=== PATIENT | female | born 1975 | race Caucasian/White ===

== ENCOUNTER 2018-06-16 11:21 | Inpatient (IN) | payer OTHER ==
[2018-06-16 13:31] VITALS: BMI 21.5
--- NOTE | 2018-06-16 13:49 | HP ---
CIWA Score - CIWA Score Nausea/Vomitin Muscle Tremors: 2 Anxiety: 2 Agitation: 2 Paroxysmal Sweats: 1-Minimal Palms Moist Orientation: 0-Oriented Tacttile Disturbances: 1-Very Mild Itch/Numbness Auditory Disturbances: 1-Very Mild Visual Disturbances: 1-Very Mild Sensitivity Headache: 2-Mild CIWA-Ar Total Score: 14 Admission ROS BHS - HPI Chief Complaint: i need help to stop drinking alcohol,cocaine,klonopin,heroin abused,mmtp 60 mgs/ day syncope nicotine dependence Allergies/Adverse Reactions: Allergies Allergy/AdvReac Type Severity Reaction Status Date / Time NSAIDS (Non-Steroidal Allergy Intermediate Hives Verified 06/16/18 13:39 Anti-Inflamma History of Present Illness: this 43 years old female with alcohol,cocaine,klonopin heroin abused,mmtp 60 mgs /day,last medicated today syncope history of hepatitis c treated,asthma,weight loss,anxiety,depression,ptsd perforated duodenal ulcer in 07/03 treated at [facility] fx of right wrist at age of 6 years abrasion of right middle fingerlast detox 2017 [facility] Exam Limitations: No Limitations - Ebola screening Have you traveled outside of the country in the last 21 days: No Have you had contact with anyone from an Ebola affected area: No Have you been sick,other than usual withdrawal symptoms: No - Review of Systems Constitutional: Loss of Appetite, Malaise, Night Sweats, Changes in sleep, Weakness, Unintentional Wgt. Loss EENT: reports: Nose Congestion Respiratory: reports: No Symptoms reported, Other (asthma) Cardiac: reports: No Symptoms Reported GI: reports: Nausea, Poor Appetite, Abdominal cramping, Other (s/p surgery for perforated duodenal ulcer) : reports: No Symptoms Reported Musculoskeletal: reports: Back Pain, Muscle Pain Integumentary: reports: Dryness Neuro: reports: Tremors Endocrine: reports: No Symptoms Reported Hematology: reports: No Symptoms Reported Psychiatric: reports: No Sypmtoms Reported, Judgement Intact, Mood/Affect Appropiate, Orientated x3 (ptsd), Agitated, Depressed Patient History - Patient Medical History Hx Anemia: No Hx Asthma: Yes (on albuterol inhaler) Hx Chronic Obstructive Pulmonary Disease (COPD): No Hx Cancer: No Hx Cardiac Disorders: No Hx Congestive Heart Failure: No Hx Hypertension: No Hx Hypercholesterolemia: No Hx Pacemaker: No HX Cerebrovascular Accident: No Hx Seizures: No Hx Dementia: No Hx Diabetes: No Hx Gastrointestinal Disorders: No Hx Liver Disease: Yes (hepatitis c treated) Hx Genitourinary Disorders: No Hx Sexually Transmitted Disorders: No Hx Renal Disease (ESRD): No Hx Thyroid Disease: No Hx Human Immunodeficiency Virus (HIV): No (last 12/08 negative) Hx Hepatitis C: Yes (treated) Hx Depression: Yes Hx Suicide Attempt: No Hx Bipolar Disorder: No Hx Schizophrenia: No Other Medical History: no suicidal,no homicidal, - Patient Surgical History Past Surgical History: Yes Hx Abdominal Surgery: Yes (perforated duodenal ulcer) - PPD History Previous Implant?: Yes Documented Results: Negative w/o proof Implanted On Prior [facility] Admission?: No PPD to be Administered?: Yes - Reproductive History Patient is a Female of Child Bearing Age (11 -55 yrs old): Yes Last Menstrual Period: 05/24/18 Patient : No - Smoking Cessation Smoking history: Current every day smoker Have you smoked in the past 12 months: Yes Aproximately how many cigarettes per day: 10 Cigars Per Day: 0 Hx Chewing Tobacco Use: No Initiated information on smoking cessation: Yes 'Breaking Loose' booklet given: 06/16/18 - Substance & Tx. History Hx Alcohol Use: Yes Hx Substance Use: Yes Substance Use Type: Alcohol, Cocaine, Opiates, Tranquilizers Hx Substance Use Treatment: Yes ([facility] 2016) - Substances Abused Alcohol Route: Oral Frequency: Daily Amount used: vodka-6pts Age of first use: 13 Date of Last Use: 06/16/18 Heroin Route: Oral Frequency: Daily Amount used: 4bags Age of first use: 15 Date of Last Use: 06/16/18 Benzodiazepine (Klonopin) Route: Oral Frequency: Daily Amount used: 6mg Age of first use: 12 Date of Last Use: 06/15/18 Cocaine Route: Injection Frequency: Daily Amount used: $40- 4bags Age of first use: 14 Date of Last Use: 06/15/18 Family Disease History - Family Disease History Family Disease History: Other: Father (), Mother (alcohol,dsa,sober) Admission Physical Exam BHS - Vital Signs Vital Signs: Vital Signs - 24 hr 06/16/18 13:26 Temperature 96 F L Pulse Rate 47 L Respiratory 17 Rate Blood Pressure 92/59 L - Physical General Appearance: Yes: Moderate Distress, Cachetic, Tremorous, Irritable, Sweating, Anxious HEENTM: Yes: Normal ENT Inspection, EVE, Pharynx Normal Respiratory: Yes: Lungs Clear, Normal Breath Sounds, No Respiratory Distress Neck: Yes: Within Normal Limits, Supple, Trachea in good position Breast: Yes: Breast Exam Deferred Cardiology: Yes: Regular Rhythm, Regular Rate, S1, S2, Bradycardia Abdominal: Yes: Within Normal Limits, Normal Bowel Sounds, Non Tender, Flat, Soft, Surgical Scar Genitourinary: Yes: Within Normal Limits Back: Yes: Muscle Spasm Musculoskeletal: Yes: Back pain, Joint Stiffness, Muscle Pain Extremities: Yes: Normal Range of Motion, Tremors Neurological: Yes: Within Normal Limits, jigger operator II-XII NML intact, Alert, Motor Strength 5/5 Integumentary: Yes: Dry Lymphatic: Yes: Within Normal Limits - Diagnostic (1) Alcohol dependence with uncomplicated withdrawal Current Visit: Yes Status: Acute (2) Uncomplicated sedative, hypnotic or anxiolytic withdrawal Current Visit: Yes Status: Acute (3) Hepatitis C Current Visit: Yes Status: Acute (4) Weight loss Current Visit: Yes Status: Acute (5) Anxiety and depression Current Visit: Yes Status: Acute (6) Methadone maintenance therapy patient Current Visit: Yes Status: Acute (7) History of peptic ulcer Current Visit: Yes Status: Acute (8) PTSD (post-traumatic stress disorder) Current Visit: Yes Status: Acute (9) Abrasion Current Visit: Yes Status: Acute Cleared for Admission [facility] - Detox or Rehab [facility] Level of Care: Medically Managed Detox Regimen/Protocol: Valium [facility] Breath Alcohol Content Breath Alcohol Content: 0 Urine Pregancy Test - Result Urine Test Results: Negative- NO Line Present Urine Drug Screen - Results Drug Screen Negative: No Urine Drug Screen Results: LENORA-Cocaine, OPI-Opiates, BZO-Benzodiazepines, MTD- Methadone, FEN-Fentanyl
[2018-06-16] MEDS ORDERED: LOPERAMIDE HCL 2 MG CAPSULE PO PRN (15:15)
[2018-06-16] MEDS ORDERED: diazePAM 5 MG TABLET PO PRN (15:15)
[2018-06-16] MEDS ORDERED: ACETAMINOPHEN 325 MG TABLET (FP) PO PRN (15:15)
[2018-06-16] MEDS ORDERED: MAG HYDROX/AL HYDROX/SIMETH 30 ML UNIT-DOSE CUP PO PRN (15:15)
[2018-06-16] MEDS ORDERED: MAGNESIUM HYDROX 2400MG/30ML ORAL SUSPENSION 30 ML CUP PO PRN (15:15)
[2018-06-16] MEDS ORDERED: guaiFENesin/D-METHORPHAN HB 10 ML UNIT-DOSE CUPS PO PRN (15:15)
[2018-06-16] MEDS ORDERED: MENTHOL/PHENOL 1 EACH UD MM PRN (15:15)
[2018-06-16] MEDS ORDERED: P-EPHED 60MG/TRIPROLIDI 2.5MG TABLET PO PRN (15:15)
[2018-06-16] MEDS ORDERED: IBUPROFEN 400 MG TABLET (FP) PO PRN (15:15)
[2018-06-16] MEDS ORDERED: MAGNESIUM CITRATE 300 ML BOTTLE PO PRN (15:15)
--- NOTE | 2018-06-16 15:44 | CONSULT ---
[facility] Psychiatric Consult - Data Date of interview: 06/16/18 Admission source: [facility] Identifying data: This is a 43 years old female, ,unemployed, homeless, onPA support, with psychiatric hospitalization history with alcohol,cocaine, klonopin heroin dependence, reporting withdrawal symptoms and seeking detox. Currently on MMTP 60 mgs/day,last medicated today. Substance Abuse History: - Smoking Cessation. Smoking history: Current every day smoker. Have you smoked in the past 12 months: Yes. Aproximately how many cigarettes per day: 10. Cigars Per Day: 0. Hx Chewing Tobacco Use: No. Initiated information on smoking cessation: Yes. 'Breaking Loose' booklet given : 06/16/18. - Substance & Tx. History. Hx Alcohol Use: Yes. Hx Substance Use : Yes. Substance Use Type: Alcohol, Cocaine, Opiates, Tranquilizers. Hx Substance Use Treatment: Yes ([facility] 2016). - Substances Abused. Alcohol. Route: Oral. Frequency: Daily. Amount used: vodka-6pts. Age of first use: 13. Date of Last Use: 06/16/18. Heroin. Route: Oral. Frequency: Daily. Amount used: 4bags. Age of first use: 15. Date of Last Use: 06/16/18. Benzodiazepine (Klonopin). Route: Oral. Frequency: Daily. Amount used: 6mg. Age of first use: 12. Date of Last Use: 06/15/18. Cocaine. Route: Injection. Frequency: Daily. Amount used: $40- 4bags. Age of first use: 14. Date of Last Use: 06/15/18 Medical History: hEPc+, Peptic Ulcer, Weigth loss history, Symcope history, Seizure history Psychiatric History: Patient reports history of depression and anxiety, reports taking prior to admission: Seroquel 50mg po qhs. As per computer suffers PTSD, . Denies suicidal, homicidal history. Reports unclear psychiatric admission on 2017 at [facility]. Physical/Sexual Abuse/Trauma History: Denies Additional Comment: Seroquel 50mg po qhs Mental Status Exam - Mental Status Exam Alert and Oriented to: Person Cognitive Function: Fair Patient Appearance: Well Groomed Mood: Anxious, Irritable Affect: Mood Congruent Patient Behavior: Cooperative Speech Pattern: Appropriate Voice Loudness: Normal Thought Process: Goal Oriented Thought Disorder: Being Controlled Hallucinations: Denies Suicidal Ideation: Denies Homicidal Ideation: Denies Insight/Judgement: Fair Sleep: Difficulty falling asleep Appetite: Weight loss Muscle strength/Tone: Normal Gait/Station: Normal Additional Comments: Seroquel 50mg po qhs Psychiatric Findings - Problem List ([place] 1, 2,3) (1) Alcohol dependence with uncomplicated withdrawal Current Visit: Yes Status: Acute (2) Anxiety and depression Current Visit: Yes Status: Acute (3) Methadone maintenance therapy patient Current Visit: Yes Status: Acute (4) PTSD (post-traumatic stress disorder) Current Visit: Yes Status: Acute (5) Uncomplicated sedative, hypnotic or anxiolytic withdrawal Current Visit: Yes Status: Acute (6) Weight loss Current Visit: Yes Status: Acute - Initial Treatment Plan Initial Treatment Plan: SEROQUEL 50MG PO QHS
[2018-06-16] MEDS ORDERED: diazePAM 5 MG TABLET PO ONE (15:45)
[2018-06-16] MEDS ORDERED: MELATONIN 5 MG TABLETS PO PRN (22:00)
[2018-06-16] MEDS: diazePAM 5 MG TABLET PO SCH (22:50)
[2018-06-16] MEDS: THIAMINE HCL 100 MG TABLET (FP) PO SCH (22:50)
[2018-06-16 23:16] LABS: URINE APPEARANCE CLEAR; URINE BILIRUBIN NEGATIVE (<2.0 mg/dL); URINE COLOR YELLOW; URINE GLUCOSE (UA) NEGATIVE (NEGATIVE); URINE KETONE NEGATIVE (NEGATIVE); URINE LEUK ESTERASE TRACE (NEGATIVE); URINE NITRITE NEGATIVE (NEGATIVE); URINE PROTEIN NEGATIVE (NEGATIVE); URINE UROBILINOGEN 4.0 E.U/dl mg/dL (0.2-1.0)
[2018-06-16 23:28] LABS: EPI CELLS MODERATE /HPF (FEW); URINE BACTERIA RARE /hpf (NONE SEEN); URINE MUCUS RARE
[2018-06-17] MEDS: diazePAM 5 MG TABLET PO SCH ×3 (05:24→22:22)
[2018-06-17] MEDS ORDERED: METHADONE HCL 10 MG TABLET PO ONE (08:52)
[2018-06-17] MEDS ORDERED: METHADONE 40 MG, METHADONE 20 MG PO ONE (09:15)
--- NOTE | 2018-06-17 09:45 | EKG ---
Test Reason : Blood Pressure : / mmHG Vent. Rate : 053 BPM Atrial Rate : 053 BPM P-R Int : 114 ms QRS Dur : 090 ms QT Int : 472 ms P-R-T Axes : 010 056 041 degrees QTc Int : 442 ms SINUS BRADYCARDIA NONSPECIFIC T WAVE ABNORMALITY NO PREVIOUS ECGS AVAILABLE Confirmed by SHERIDAN MARTINO MD ([id number]) on 06/17/2018 9:45:00 AM Referred By: Confirmed By:SHERIDAN MARTINO MD
[2018-06-17] MEDS ORDERED: METHADONE HCL 40 MG DISPERSABLE TABLET ONE (09:55)
[2018-06-17] MEDS ORDERED: METHADONE HCL 10 MG TABLET ONE (09:55)
[2018-06-17 10:40] LABS: HEMATOCRIT 35.2 % (32.4-45.2); HEMOGLOBIN 11.6 GM/dL (10.7-15.3); MCH 28.2 pg (25.7-33.7); MCHC 32.9 g/dl (32.0-36.0); MEAN CELL VOLUME 85.6 fl (80-96); PLATELET COUNT 277 K/MM3 (134-434); RBC 4.11 M/mm3 (3.60-5.2); RDW 14.4 % (11.6-15.6); WHITE BLOOD COUNT 5.4 K/mm3 (4.0-10.0)
[2018-06-17] MEDS: PRENATAL VITAMINS W/ FOLIC ACID TABLET (FP) PO SCH (10:43)
[2018-06-17 10:52] LABS: ALBUMIN 2.9 g/dl (3.4-5.0); ALK PHOS 61 U/L (45-117); ANION GAP 5 MMOL/L (8-16); BILIRUBIN,TOTAL 0.2 mg/dL (0.2-1); BLOOD UREA NITROGEN 11 mg/dL (7-18); CALCIUM 8.8 mg/dL (8.5-10.1); CHLORIDE 107 mmol/L (98-107); CO2 30 mmol/L (21-32); CREATININE 0.8 mg/dL (0.55-1.3); GLUCOSE,RANDOM 88 mg/dL (74-106); POTASSIUM 4.7 mmol/L (3.5-5.1); SGOT/AST 15 U/L (15-37); SGPT/ALT 12 U/L (13-61); SODIUM 142 mmol/L (136-145); TOT PROT 6.4 g/dl (6.4-8.2)
--- NOTE | 2018-06-17 11:04 | PN ---
S CIWA - CIWA Score Nausea/Vomitin-No Nausea/No Vomiting Muscle Tremors: 4-Moderate,w/Arms Extend Anxiety: 3 Agitation: 4-Moderately Restless Paroxysmal Sweats: 3 Orientation: 0-Oriented Tacttile Disturbances: 0-None Auditory Disturbances: 0-None Visual Disturbances: 0-None Headache: 0-None Present CIWA-Ar Total Score: 14 BHS Progress Note (SOAP) Subjective: sleepy tired sweats body aches irritable agitation shakes Objective: 06/17/18 11:03 Vital Signs Temperature 98.1 F 06/17/18 09:39 Pulse Rate 67 06/17/18 09:39 Respiratory Rate 18 06/17/18 09:39 Blood Pressure 105/74 06/17/18 09:39 O2 Sat by Pulse Oximetry (%) Laboratory Tests 06/16/18 06/17/18 06/17/18 16:11 07:00 07:00 WBC 5.4 RBC 4.11 Hgb 11.6 Hct 35.2 MCV 85.6 MCH 28.2 MCHC 32.9 RDW 14.4 Plt Count 277 MPV 9.0 Sodium 142 Potassium 4.7 Chloride 107 Carbon Dioxide 30 Anion Gap 5 L BUN 11 Creatinine 0.8 Creat Clearance w eGFR > 60 Random Glucose 88 Calcium 8.8 Total Bilirubin 0.2 AST 15 ALT 12 L Alkaline Phosphatase 61 Total Protein 6.4 Albumin 2.9 L Urine Color Yellow Urine Appearance Clear Urine pH 6.0 Ur Specific [place] 1.015 Urine Protein Negative Urine Glucose (UA) Negative Urine Ketones Negative Urine Blood Negative Urine Nitrite Negative Urine Bilirubin Negative Urine Urobilinogen 4.0 e.u/dl H Ur Leukocyte Esterase Trace Urine WBC (Auto) None Urine RBC (Auto) None Ur Epithelial Cells Moderate Urine Bacteria Rare Urine Mucus Rare aaox3 ambulating no acute distress Assessment: 06/17/18 11:03 withdrawal sx Plan: continue detox increase fluids
[2018-06-17] MEDS ORDERED: FLU VACCINE QUAD 60 MCG/0.5 ML (MDV 18-19) IM ONE (12:00)
--- NOTE | 2018-06-17 20:19 | PN ---
S Progress Note Note: Call to assess patient for lice. Hair is short. Patient denies itching. Hair w/o nits (eggs) or insects on shafts. No insects in hair or on scalp. No erythema spots on scalp. Assessment: No Pediculus Capitis present.
[2018-06-17] MEDS: THIAMINE HCL 100 MG TABLET (FP) PO SCH (22:22)
[2018-06-18] MEDS ORDERED: METHADONE HCL 40 MG DISPERSABLE TABLET ONE (05:31)
[2018-06-18] MEDS ORDERED: METHADONE HCL 10 MG TABLET ONE (05:32)
[2018-06-18] MEDS ORDERED: METHADONE HCL 40 MG DISPERSABLE TABLET PO SCH (06:00)
[2018-06-18] MEDS: METHADONE 40 MG, METHADONE 20 MG PO SCH (06:02)
[2018-06-18] MEDS: diazePAM 5 MG TABLET PO SCH ×2 (10:03→22:24)
[2018-06-18] MEDS: PRENATAL VITAMINS W/ FOLIC ACID TABLET (FP) PO SCH (10:03)
--- NOTE | 2018-06-18 14:56 | PN ---
S CIWA - CIWA Score Nausea/Vomitin-No Nausea/No Vomiting Muscle Tremors: 3 Anxiety: 1-Mildly Anxious Agitation: 0-Normal Activity Paroxysmal Sweats: No Perspiration Orientation: 0-Oriented Tacttile Disturbances: 0-None Auditory Disturbances: 0-None Visual Disturbances: 0-None Headache: 0-None Present CIWA-Ar Total Score: 4 BHS Progress Note (SOAP) Subjective: States feeling much better today. Has some slight tremors of hands and mild anxiety but otherwise ok. Objective: A&O x3. Mild tremors of hands w/ arms extended. No evidence of lice. Vital Signs 06/18/18 06/18/18 09:21 13:47 Temperature 96.9 F L 98.2 F Pulse Rate 51 L 56 L Respiratory 16 18 Rate Blood Pressure 117/70 96/70 Laboratory Tests 06/16/18 06/16/18 06/17/18 07:00 16:11 07:00 WBC 5.4 RBC 4.11 Hgb 11.6 Hct 35.2 MCV 85.6 MCH 28.2 MCHC 32.9 RDW 14.4 Plt Count 277 MPV 9.0 Sodium Potassium Chloride Carbon Dioxide Anion Gap BUN Creatinine Creat Clearance w eGFR Random Glucose Calcium Total Bilirubin AST ALT Alkaline Phosphatase Total Protein Albumin Urine Color Yellow Urine Appearance Clear Urine pH 6.0 Ur Specific [place] 1.015 Urine Protein Negative Urine Glucose (UA) Negative Urine Ketones Negative Urine Blood Negative Urine Nitrite Negative Urine Bilirubin Negative Urine Urobilinogen 4.0 e.u/dl H Ur Leukocyte Esterase Trace Urine WBC (Auto) None Urine RBC (Auto) None Ur Epithelial Cells Moderate Urine Bacteria Rare Urine Mucus Rare RPR Titer HIV 1&2 Antibody Screen Negative HIV P24 Antigen Negative 06/17/18 06/17/18 07:00 07:00 WBC RBC Hgb Hct MCV MCH MCHC RDW Plt Count MPV Sodium 142 Potassium 4.7 Chloride 107 Carbon Dioxide 30 Anion Gap 5 L BUN 11 Creatinine 0.8 Creat Clearance w eGFR > 60 Random Glucose 88 Calcium 8.8 Total Bilirubin 0.2 AST 15 ALT 12 L Alkaline Phosphatase 61 Total Protein 6.4 Albumin 2.9 L Urine Color Urine Appearance Urine pH Ur Specific [place] Urine Protein Urine Glucose (UA) Urine Ketones Urine Blood Urine Nitrite Urine Bilirubin Urine Urobilinogen Ur Leukocyte Esterase Urine WBC (Auto) Urine RBC (Auto) Ur Epithelial Cells Urine Bacteria Urine Mucus RPR Titer Nonreactive HIV 1&2 Antibody Screen HIV P24 Antigen Labs reviewed. Assessment: Withdrawal symptoms Plan: Continue detox.
[2018-06-18] MEDS: THIAMINE HCL 100 MG TABLET (FP) PO SCH (22:24)
[2018-06-19] MEDS ORDERED: METHADONE HCL 40 MG DISPERSABLE TABLET ONE (04:31)
[2018-06-19] MEDS ORDERED: METHADONE HCL 10 MG TABLET ONE (04:32)
[2018-06-19] MEDS: METHADONE 40 MG, METHADONE 20 MG PO SCH (05:24)
[2018-06-19] MEDS: diazePAM 5 MG TABLET PO SCH ×2 (10:03→22:07)
[2018-06-19] MEDS: PRENATAL VITAMINS W/ FOLIC ACID TABLET (FP) PO SCH (10:03)
--- NOTE | 2018-06-19 10:50 | PN ---
BHS Progress Note (SOAP) Subjective: feeling better no tremor less sweat no trouble sleep at night Objective: 06/19/18 10:49 Vital Signs Temperature 98.1 F 06/19/18 09:41 Pulse Rate 60 06/19/18 09:41 Respiratory Rate 16 06/19/18 09:41 Blood Pressure 109/71 06/19/18 09:41 O2 Sat by Pulse Oximetry (%) Laboratory Last Values WBC 5.4 K/mm3 (4.0-10.0) 06/17/18 07:00 RBC 4.11 M/mm3 (3.60-5.2) 06/17/18 07:00 Hgb 11.6 GM/dL (10.7-15.3) 06/17/18 07:00 Hct 35.2 % (32.4-45.2) 06/17/18 07:00 MCV 85.6 fl (80-96) 06/17/18 07:00 MCH 28.2 pg (25.7-33.7) 06/17/18 07:00 MCHC 32.9 g/dl (32.0-36.0) 06/17/18 07:00 RDW 14.4 % (11.6-15.6) 06/17/18 07:00 Plt Count 277 K/MM3 (134-434) 06/17/18 07:00 MPV 9.0 fl (7.5-11.1) 06/17/18 07:00 Sodium 142 mmol/L (136-145) 06/17/18 07:00 Potassium 4.7 mmol/L (3.5-5.1) 06/17/18 07:00 Chloride 107 mmol/L (98-107) 06/17/18 07:00 Carbon Dioxide 30 mmol/L (21-32) 06/17/18 07:00 Anion Gap 5 MMOL/L (8-16) L 06/17/18 07:00 BUN 11 mg/dL (7-18) 06/17/18 07:00 Creatinine 0.8 mg/dL (0.55-1.3) 06/17/18 07:00 Creat Clearance w eGFR > 60 (>60) 06/17/18 07:00 Random Glucose 88 mg/dL (74-106) 06/17/18 07:00 Calcium 8.8 mg/dL (8.5-10.1) 06/17/18 07:00 Total Bilirubin 0.2 mg/dL (0.2-1) 06/17/18 07:00 AST 15 U/L (15-37) 06/17/18 07:00 ALT 12 U/L (13-61) L 06/17/18 07:00 Alkaline Phosphatase 61 U/L (45-117) 06/17/18 07:00 Total Protein 6.4 g/dl (6.4-8.2) 06/17/18 07:00 Albumin 2.9 g/dl (3.4-5.0) L 06/17/18 07:00 Urine Color Yellow 06/16/18 16:11 Urine Appearance Clear 06/16/18 16:11 Urine pH 6.0 (5.0-8.0) 06/16/18 16:11 Ur Specific [place] 1.015 (1.010-1.035) 06/16/18 16:11 Urine Protein Negative (NEGATIVE) 06/16/18 16:11 Urine Glucose (UA) Negative (NEGATIVE) 06/16/18 16:11 Urine Ketones Negative (NEGATIVE) 06/16/18 16:11 Urine Blood Negative (NEGATIVE) 06/16/18 16:11 Urine Nitrite Negative (NEGATIVE) 06/16/18 16:11 Urine Bilirubin Negative (<2.0 mg/dL) 06/16/18 16:11 Urine Urobilinogen 4.0 e.u/dl mg/dL (0.2-1.0) H 06/16/18 16:11 Ur Leukocyte Esterase Trace (NEGATIVE) 06/16/18 16:11 Urine WBC (Auto) None /hpf (3-5) 06/16/18 16:11 Urine RBC (Auto) None /hpf (0-3) 06/16/18 16:11 Ur Epithelial Cells Moderate /HPF (FEW) 06/16/18 16:11 Urine Bacteria Rare /hpf (NONE SEEN) 06/16/18 16:11 Urine Mucus Rare 06/16/18 16:11 RPR Titer Nonreactive (NONREACTIVE) 06/17/18 07:00 HIV 1&2 Antibody Screen Negative 06/16/18 07:00 HIV P24 Antigen Negative 06/16/18 07:00 lab noted Assessment: 10/28/18 10:50 mild withdrawal sx Plan: medically supervised detox
[2018-06-19] MEDS: THIAMINE HCL 100 MG TABLET (FP) PO SCH (22:08)
[2018-06-20] MEDS ORDERED: METHADONE HCL 10 MG TABLET ONE (03:09)
[2018-06-20] MEDS ORDERED: METHADONE HCL 40 MG DISPERSABLE TABLET ONE (03:09)
[2018-06-20] MEDS: METHADONE 40 MG, METHADONE 20 MG PO SCH (05:35)
--- NOTE | 2018-06-20 09:46 | DS ---
[facility] Detox Discharge Summary Admission Date: 06/16/18 Discharge Date: 06/20/18 - History Present History: Alcohol Dependence, Sedative Dependence Additional Comments: 43 years old female admitted on 06/16/18 for alcohol and benzo withdrawal sx completed alcohol detox regimen tolerated well denies alcohol and benzo withdrawal sx alert oriented x 3 no acute distress aftercare [facility] / or [facility] - Physical Exam Results Vital Signs: Vital Signs Temperature 98.1 F 06/20/18 05:56 Pulse Rate 55 L 06/20/18 05:56 Respiratory Rate 18 06/20/18 05:56 Blood Pressure 104/64 06/20/18 05:56 O2 Sat by Pulse Oximetry (%) Pertinent Admission Physical Exam Findings: alcohol and benzo withdrawal sx Vital Signs Temperature 98.1 F 06/20/18 05:56 Pulse Rate 55 L 06/20/18 05:56 Respiratory Rate 18 06/20/18 05:56 Blood Pressure 104/64 06/20/18 05:56 O2 Sat by Pulse Oximetry (%) Laboratory Last Values WBC 5.4 K/mm3 (4.0-10.0) 06/17/18 07:00 RBC 4.11 M/mm3 (3.60-5.2) 06/17/18 07:00 Hgb 11.6 GM/dL (10.7-15.3) 06/17/18 07:00 Hct 35.2 % (32.4-45.2) 06/17/18 07:00 MCV 85.6 fl (80-96) 06/17/18 07:00 MCH 28.2 pg (25.7-33.7) 06/17/18 07:00 MCHC 32.9 g/dl (32.0-36.0) 06/17/18 07:00 RDW 14.4 % (11.6-15.6) 06/17/18 07:00 Plt Count 277 K/MM3 (134-434) 06/17/18 07:00 MPV 9.0 fl (7.5-11.1) 06/17/18 07:00 Sodium 142 mmol/L (136-145) 06/17/18 07:00 Potassium 4.7 mmol/L (3.5-5.1) 06/17/18 07:00 Chloride 107 mmol/L (98-107) 06/17/18 07:00 Carbon Dioxide 30 mmol/L (21-32) 06/17/18 07:00 Anion Gap 5 MMOL/L (8-16) L 06/17/18 07:00 BUN 11 mg/dL (7-18) 06/17/18 07:00 Creatinine 0.8 mg/dL (0.55-1.3) 06/17/18 07:00 Creat Clearance w eGFR > 60 (>60) 06/17/18 07:00 Random Glucose 88 mg/dL (74-106) 06/17/18 07:00 Calcium 8.8 mg/dL (8.5-10.1) 06/17/18 07:00 Total Bilirubin 0.2 mg/dL (0.2-1) 06/17/18 07:00 AST 15 U/L (15-37) 06/17/18 07:00 ALT 12 U/L (13-61) L 06/17/18 07:00 Alkaline Phosphatase 61 U/L (45-117) 06/17/18 07:00 Total Protein 6.4 g/dl (6.4-8.2) 06/17/18 07:00 Albumin 2.9 g/dl (3.4-5.0) L 06/17/18 07:00 Urine Color Yellow 06/16/18 16:11 Urine Appearance Clear 06/16/18 16:11 Urine pH 6.0 (5.0-8.0) 06/16/18 16:11 Ur Specific [place] 1.015 (1.010-1.035) 06/16/18 16:11 Urine Protein Negative (NEGATIVE) 06/16/18 16:11 Urine Glucose (UA) Negative (NEGATIVE) 06/16/18 16:11 Urine Ketones Negative (NEGATIVE) 06/16/18 16:11 Urine Blood Negative (NEGATIVE) 06/16/18 16:11 Urine Nitrite Negative (NEGATIVE) 06/16/18 16:11 Urine Bilirubin Negative (<2.0 mg/dL) 06/16/18 16:11 Urine Urobilinogen 4.0 e.u/dl mg/dL (0.2-1.0) H 06/16/18 16:11 Ur Leukocyte Esterase Trace (NEGATIVE) 06/16/18 16:11 Urine WBC (Auto) None /hpf (3-5) 06/16/18 16:11 Urine RBC (Auto) None /hpf (0-3) 06/16/18 16:11 Ur Epithelial Cells Moderate /HPF (FEW) 06/16/18 16:11 Urine Bacteria Rare /hpf (NONE SEEN) 06/16/18 16:11 Urine Mucus Rare 06/16/18 16:11 RPR Titer Nonreactive (NONREACTIVE) 06/17/18 07:00 HIV 1&2 Antibody Screen Negative 06/16/18 07:00 HIV P24 Antigen Negative 06/16/18 07:00 lab noted - Treatment Hospital Course: Detox Protocol Followed, Detoxed Safely, Responded well, Discharged Condition Good, Rehab Referral Accepted Patient has Accepted a Rehab Referral to: [facility] or [facility] - Medication Discharge Medications: Ambulatory Orders Methadone [Dolophine -] 60 mg PO DAILY 06/16/18 - Diagnosis (1) Alcohol dependence with uncomplicated withdrawal Current Visit: Yes Status: Acute (2) Uncomplicated sedative, hypnotic or anxiolytic withdrawal Current Visit: Yes Status: Acute (3) Weight loss Current Visit: Yes Status: Acute (4) Methadone maintenance therapy patient Current Visit: Yes Status: Chronic - AMA Did Patient Leave Against Medical Advice: No
[2018-06-20] MEDS ORDERED: diazePAM 5 MG TABLET PO SCH (10:00)
[2018-06-20 10:16] VITALS: BP 101/54; PULSE 60; TEMP 97.3
[2018-06-20] MEDS: PRENATAL VITAMINS W/ FOLIC ACID TABLET (FP) PO SCH (10:45)
== END 2018-06-20 12:15 | disposition other institution (70) | DRG 773 ==
LOC: YASAS 11:21 → Y6N 14:32
PROC: HZ2ZZZZ Detoxification Services for Substance Abuse Treatment (ICD-10-PCS; principal; 2018-06-16)
DX: F10.230 Alcohol dependence with withdrawal, uncomplicated (principal); F11.20 Opioid dependence, uncomplicated; F13.230 Sedative, hypnotic or anxiolytic dependence with withdrawal, uncomplicated; F41.8 Other specified anxiety disorders; F43.10 Post-traumatic stress disorder, unspecified; B18.2 Chronic viral hepatitis C; J45.909 Unspecified asthma, uncomplicated; R00.1 Bradycardia, unspecified; Z87.898 Personal history of other specified conditions
CPT/HCPCS: 36415; 80053; 81003; 81015; 85027; 86593; 87389; 90688; 93005; 93010; G0008

== ENCOUNTER 2018-11-29 11:41 | Inpatient (IN) | payer OTHER ==
[2018-11-29 12:45] VITALS: BMI 22.8
--- NOTE | 2018-11-29 13:12 | HP ---
CIWA Score Nausea/Vomitin Muscle Tremors: 2 Anxiety: 2 Agitation: 2 Paroxysmal Sweats: 1-Minimal Palms Moist Orientation: 0-Oriented Tacttile Disturbances: 1-Very Mild Itch/Numbness Auditory Disturbances: 1-Very Mild Visual Disturbances: 0-None Headache: 2-Mild CIWA-Ar Total Score: 13 - Admission Criteria [facility]AS[facility] Guidelines: Admission for Medically Managed Detox: Requires at least one of the followin. CIWA greater than 12 2. Seizures within the past 24 hours 3. Delirium tremens within the past 24 hours 4. Hallucinations within the past 24 hours 5. Acute intervention needed for co occurring medical disorder 6. Acute intervention needed for co occurring psychiatric disorder 7. Severe withdrawal that cannot be handled at a lower level of care (continued vomiting, continued diarrhea, abnormal vital signs) requiring intravenous medication and/or fluids 8. Admission ROS [facility] - HPI Chief Complaint: i need help to stop using xanax and klonopin Allergies/Adverse Reactions: Allergies Allergy/AdvReac Type Severity Reaction Status Date / Time NSAIDS (Non-Steroidal Allergy Intermediate Hives Verified 11/29/18 12:11 Anti-Inflamma History of Present Illness: this 43 yers old female with xanax and klonopin dependence seeking detox, withdrawal symptom, had previous admissions in detox but relapsing mmtp 80 mgs/day,last medicated today hepatitis c treated nicotine dependence 1/2 pack requesting nicotine patch syncope carpal tunnel syndrome both hands on neurontin 400 mgs tid insomnia on seroquel 50 mgs po hs longest sobreity 5 years plan for rehab after detox asthma Exam Limitations: No Limitations - Ebola screening Have you traveled outside of the country in the last 21 days: No (N) Have you had contact with anyone from an Ebola affected area: No Do you have a fever: No - Review of Systems Constitutional: Malaise, Night Sweats, Changes in sleep, Weakness, Weight Stable , Unintentional Wgt. Loss EENT: reports: Nose Congestion Respiratory: reports: No Symptoms reported Cardiac: reports: No Symptoms Reported GI: reports: Diarrhea, Nausea, Vomiting, Abdominal cramping : reports: No Symptoms Reported Musculoskeletal: reports: Back Pain, Muscle Pain, Other (carpal tunnel syndrome) Integumentary: reports: Dryness Neuro: reports: Headache, Tremors Endocrine: reports: No Symptoms Reported Hematology: reports: No Symptoms Reported Psychiatric: reports: No Sypmtoms Reported, Judgement Intact, Mood/Affect Appropiate, Orientated x3, other (insomnia) Other Systems: Reviewed and Negative Patient History - Patient Medical History Hx Anemia: No Hx Asthma: Yes (on albuterol inhaler) Hx Chronic Obstructive Pulmonary Disease (COPD): No Hx Cancer: No Hx Cardiac Disorders: No Hx Congestive Heart Failure: No Hx Hypertension: No Hx Hypercholesterolemia: No Hx Pacemaker: No HX Cerebrovascular Accident: No Hx Seizures: No Hx Dementia: No Hx Diabetes: No Hx Gastrointestinal Disorders: No Hx Liver Disease: Yes (hepatitis c treated) Hx Genitourinary Disorders: No Hx Sexually Transmitted Disorders: No Hx Renal Disease (ESRD): No Hx Thyroid Disease: No Hx Human Immunodeficiency Virus (HIV): No (last 11/08 negative) Hx Hepatitis C: Yes (treated) Hx Depression: Yes Hx Suicide Attempt: No Hx Bipolar Disorder: No Hx Schizophrenia: No Other Medical History: no suicidal,no homicidal,insomnia - Patient Surgical History Past Surgical History: Yes Hx Neurologic Surgery: No Hx Cataract Extraction: No Hx Cardiac Surgery: No Hx Lung Surgery: No Hx Breast Surgery: No Hx Breast Biopsy: No Hx Abdominal Surgery: Yes (perforated duodenal ulcer [facility] 06/2011) Hx Appendectomy: No Hx Cholecystectomy: No Hx Genitourinary Surgery: No Hx Section: No Hx Orthopedic Surgery: No Anesthesia Reaction: No - PPD History Previous Implant?: Yes Documented Results: Negative w/proof Implanted On Prior [facility] Admission?: Yes Date: 06/18/18 Results: 0 mm PPD to be Administered?: No - Reproductive History Patient is a Female of Child Bearing Age (11 -55 yrs old): Yes Last Menstrual Period: 11/01/18 Patient : No - Smoking Cessation Smoking history: Current every day smoker Have you smoked in the past 12 months: Yes Aproximately how many cigarettes per day: 10 Cigars Per Day: 0 Hx Chewing Tobacco Use: No Initiated information on smoking cessation: Yes 'Breaking Loose' booklet given: 11/29/18 - Substance & Tx. History Hx Alcohol Use: Yes Hx Substance Use: Yes Substance Use Type: Alcohol Hx Substance Use Treatment: Yes ([facility] 06/16/18 to 06/20/18) - Substances abused Alprazolam (Xanax) Substance route: Oral Frequency: Daily Amount used: 5 tabs 10 mg 5 tabs of 2 mgs Age of first use: 15 Date of last use: 11/28/18 Benzodiazepine (Klonopin) Substance route: Oral Frequency: Daily Amount used: 5 tabs 10mg 5 tabs of 2 mgs Age of first use: 15 Date of last use: 11/28/18 Alcohol Substance route: Oral Frequency: 3-6 times per week Amount used: beer 2 cans @16 oz Age of first use: 19 Date of last use: 11/26/18 Family Disease History - Family Disease History Family Disease History: Heart Disease: Father (), Other: Father, Mother (alcohol,dsa,sober) Admission Physical Exam [facility] - Vital Signs Vital Signs: Vital Signs - 24 hr 11/29/18 11/29/18 12:23 12:52 Temperature 97.0 F L 97.0 F L Pulse Rate 60 60 Respiratory 18 18 Rate Blood Pressure 95/68 95/68 - Physical General Appearance: Yes: Moderate Distress, Tremorous, Irritable, Sweating, Anxious HEENTM: Yes: Normal ENT Inspection, EVE, Pharynx Normal Respiratory: Yes: Lungs Clear, Normal Breath Sounds, No Respiratory Distress Neck: Yes: Within Normal Limits, Supple, Trachea in good position Breast: Yes: Breast Exam Deferred Cardiology: Yes: Within Normal Limits, Regular Rhythm, Regular Rate, S1, S2 Abdominal: Yes: Within Normal Limits, Normal Bowel Sounds, Non Tender, Flat, Soft Genitourinary: Yes: Within Normal Limits Back: Yes: Muscle Spasm Musculoskeletal: Yes: Back pain, Muscle Pain Extremities: Yes: Within Normal Limits, Normal Range of Motion, Tremors Neurological: Yes: [employer] II-XII NML intact, Fully Oriented, Alert, Motor Strength 5/5 Integumentary: Yes: Dry Lymphatic: Yes: Within Normal Limits - Diagnostic (1) Uncomplicated sedative, hypnotic or anxiolytic withdrawal Current Visit: No Status: Acute (2) Hepatitis C Current Visit: No Status: Acute (3) History of peptic ulcer Current Visit: No Status: Acute (4) Weight loss Current Visit: No Status: Acute (5) Methadone maintenance therapy patient Current Visit: No Status: Chronic (6) Insomnia Current Visit: Yes Status: Acute (7) Carpal tunnel syndrome Current Visit: Yes Status: Acute Cleared for Admission [facility] - Detox or Rehab [facility] Level of Care: Medically Managed Detox Regimen/Protocol: Valium Breathalyzer - Breathalyzer Breathalyzer: 0 POC Urine test - Test device test lot number: [id number] Expiration date: 04/22/20 - Control test control: Yes - Result Urine Test Results: Negative - NO line present Urine Drug Screen - Test Device Lot number: [id number] Expiration date: 07/22/20 - Control Is test valid?: Yes - Results Drug screen NEGATIVE: No Urine drug screen results: THC-Marijuana, LENORA-Cocaine, MOP-Opiates, MTD- Methadone Inpatient Rehab Admission - Rehab Decision to Admit Inpatient rehab admission?: No
[2018-11-29] MEDS ORDERED: MAGNESIUM HYDROX 2400MG/30ML ORAL SUSPENSION 30 ML CUP PO PRN (13:24)
[2018-11-29] MEDS ORDERED: hydrOXYzine PAMOATE 25 MG CAPSULE (FP) PO PRN (13:24)
[2018-11-29] MEDS ORDERED: MENTHOL/PHENOL 1 EACH UD MM PRN (13:24)
[2018-11-29] MEDS ORDERED: ACETAMINOPHEN 325 MG TABLET (FP) PO PRN ×2 (13:24)
[2018-11-29] MEDS ORDERED: MAGNESIUM CITRATE 300 ML BOTTLE PO PRN (13:24)
[2018-11-29] MEDS ORDERED: diazePAM 5 MG TABLET PO PRN (13:24)
[2018-11-29] MEDS ORDERED: MAG HYDROX/AL HYDROX/SIMETH 30 ML UNIT-DOSE CUP PO PRN (13:24)
[2018-11-29] MEDS ORDERED: MELATONIN 5 MG TABLETS PO PRN (13:24)
[2018-11-29] MEDS ORDERED: METHOCARBAMOL 500 MG TABLET PO PRN (13:24)
[2018-11-29] MEDS: GABAPENTIN 400 MG CAPSULE (FP) PO SCH ×2 (14:13→21:59)
[2018-11-29] MEDS: NICOTINE 21 MG/24 HOURS TOPICAL PATCH TD SCH (14:18)
[2018-11-29] MEDS ORDERED: hydrOXYzine HCL 25 MG TABLET (FP) PO PRN (18:46)
[2018-11-29 18:53] LABS: ALBUMIN 3.7 g/dl (3.4-5.0); ALK PHOS 69 U/L (45-117); ANION GAP 5 MMOL/L (8-16); BILIRUBIN,TOTAL 0.5 mg/dL (0.2-1); BLOOD UREA NITROGEN 12 mg/dL (7-18); CALCIUM 9.3 mg/dL (8.5-10.1); CHLORIDE 102 mmol/L (98-107); CO2 31 mmol/L (21-32); CREATININE 0.9 mg/dL (0.55-1.3); GLUCOSE,RANDOM 80 mg/dL (74-106); SGOT/AST 10 U/L (15-37); SGPT/ALT 14 U/L (13-61); SODIUM 138 mmol/L (136-145); TOT PROT 7.3 g/dl (6.4-8.2)
[2018-11-29 18:55] LABS: HEMATOCRIT 39.2 % (32.4-45.2); HEMOGLOBIN 13.1 GM/dL (10.7-15.3); MCH 29.4 pg (25.7-33.7); MCHC 33.5 g/dl (32.0-36.0); MEAN CELL VOLUME 87.9 fl (80-96); MEAN PLT VOLUME 9.7 fl (7.5-11.1); PLATELET COUNT 274 K/MM3 (134-434); RBC 4.46 M/mm3 (3.60-5.2); RDW 14.2 % (11.6-15.6); WHITE BLOOD COUNT 6.6 K/mm3 (4.0-10.0)
[2018-11-29 19:28] LABS: EPI CELLS 11.4 /HPF (0-5/HPF); PH,URINE 5.5 (5.0-8.0); URINE APPEARANCE TURBID; URINE BACTERIA 171.6 /hpf (NEGATIVE); URINE BILIRUBIN 1+ (NEGATIVE); URINE CASTS 11 /hpf (0-8); URINE COLOR DK YELLOW; URINE GLUCOSE (UA) NEGATIVE (NEGATIVE); URINE KETONE TRACE (NEGATIVE); URINE LEUK ESTERASE TRACE (NEGATIVE); URINE NITRITE NEGATIVE (NEGATIVE); URINE PROTEIN TRACE (NEGATIVE); URINE WBC 10 /hpf (0-5)
[2018-11-29 20:06] LABS: URINE RBC 6.8 /hpf (0-4)
[2018-11-29] MEDS: QUEtiapine FUMARATE 50 MG TABLET PO SCH (21:52)
[2018-11-29] MEDS: diazePAM 5 MG TABLET PO SCH (21:53)
[2018-11-29] MEDS: THIAMINE HCL 100 MG TABLET (FP) PO SCH (21:53)
[2018-11-30] MEDS: METHADONE HCL 40 MG DISPERSABLE TABLET PO SCH (06:28)
[2018-11-30] MEDS: GABAPENTIN 400 MG CAPSULE (FP) PO SCH ×3 (06:28→22:13)
[2018-11-30] MEDS: diazePAM 5 MG TABLET PO SCH ×3 (06:30→22:13)
[2018-11-30] MEDS: PRENATAL VITAMINS W/ FOLIC ACID TABLET (FP) PO SCH (10:47)
[2018-11-30] MEDS: NICOTINE 21 MG/24 HOURS TOPICAL PATCH TD SCH (10:47)
--- NOTE | 2018-11-30 10:52 | PN ---
S CIWA - CIWA Score Nausea/Vomitin-No Nausea/No Vomiting Muscle Tremors: 3 Anxiety: 3 Agitation: 3 Paroxysmal Sweats: 3 Orientation: 0-Oriented Tacttile Disturbances: 0-None Auditory Disturbances: 0-None Visual Disturbances: 0-None Headache: 0-None Present CIWA-Ar Total Score: 12 S Progress Note (SOAP) Subjective: sweats mild shakes interrupted sleep body aches Objective: 11/30/18 11:03 Vital Signs Temperature 97.7 F 11/30/18 09:13 Pulse Rate 56 L 11/30/18 09:13 Respiratory Rate 16 11/30/18 09:13 Blood Pressure 109/68 11/30/18 09:13 O2 Sat by Pulse Oximetry (%) Laboratory Tests 11/29/18 11/29/18 11/29/18 13:40 13:40 13:40 WBC 6.6 RBC 4.46 Hgb 13.1 Hct 39.2 MCV 87.9 MCH 29.4 MCHC 33.5 RDW 14.2 Plt Count 274 MPV 9.7 Sodium 138 Potassium 4.0 Chloride 102 Carbon Dioxide 31 Anion Gap 5 L BUN 12 Creatinine 0.9 Creat Clearance w eGFR 67.71 Random Glucose 80 Calcium 9.3 Total Bilirubin 0.5 AST 10 L ALT 14 Alkaline Phosphatase 69 Total Protein 7.3 Albumin 3.7 Urine Color Urine Appearance Urine pH Ur Specific [place] Urine Protein Urine Glucose (UA) Urine Ketones Urine Blood Urine Nitrite Urine Bilirubin Urine Urobilinogen Ur Leukocyte Esterase Urine WBC (Auto) Urine RBC (Auto) Urine Casts (Auto) U Epithel Cells (Auto) Urine Bacteria (Auto) RPR Titer Nonreactive 11/29/18 15:56 WBC RBC Hgb Hct MCV MCH MCHC RDW Plt Count MPV Sodium Potassium Chloride Carbon Dioxide Anion Gap BUN Creatinine Creat Clearance w eGFR Random Glucose Calcium Total Bilirubin AST ALT Alkaline Phosphatase Total Protein Albumin Urine Color Dk yellow Urine Appearance Turbid Urine pH 5.5 Ur Specific [place] 1.027 Urine Protein Trace Urine Glucose (UA) Negative Urine Ketones Trace H Urine Blood Negative Urine Nitrite Negative Urine Bilirubin 1+ H Urine Urobilinogen 2.0 H Ur Leukocyte Esterase Trace Urine WBC (Auto) 10 Urine RBC (Auto) 6.8 Urine Casts (Auto) 11 U Epithel Cells (Auto) 11.4 Urine Bacteria (Auto) 171.6 RPR Titer labs noted repeat u/a [id number] ambulating no acute distress Assessment: 11/30/18 11:04 withdrawal sx Plan: continue detox increase fluids repeat u/a
[2018-11-30] MEDS: QUEtiapine FUMARATE 50 MG TABLET PO SCH (22:12)
[2018-11-30] MEDS: THIAMINE HCL 100 MG TABLET (FP) PO SCH (22:12)
[2018-12-01] MEDS: GABAPENTIN 400 MG CAPSULE (FP) PO SCH ×3 (05:51→21:54)
[2018-12-01] MEDS: METHADONE HCL 40 MG DISPERSABLE TABLET PO SCH (05:51)
[2018-12-01] MEDS ORDERED: COLLOIDAL OATMEAL 1 BAR EACH TP PRN (10:16)
[2018-12-01] MEDS: NICOTINE 21 MG/24 HOURS TOPICAL PATCH TD SCH (10:23)
[2018-12-01] MEDS: diazePAM 5 MG TABLET PO SCH ×2 (10:24→21:54)
[2018-12-01] MEDS: AMMONIUM LACTATE 12% LOTION 225 GM BOTTLE TP SCH ×2 (10:24→22:16)
[2018-12-01] MEDS: PRENATAL VITAMINS W/ FOLIC ACID TABLET (FP) PO SCH (10:24)
[2018-12-01] MEDS: QUEtiapine FUMARATE 50 MG TABLET PO SCH (21:54)
[2018-12-01] MEDS: THIAMINE HCL 100 MG TABLET (FP) PO SCH (21:54)
[2018-12-02] MEDS: GABAPENTIN 400 MG CAPSULE (FP) PO SCH (05:45)
[2018-12-02] MEDS: METHADONE HCL 40 MG DISPERSABLE TABLET PO SCH (05:45)
[2018-12-02] MEDS ORDERED: diazePAM 5 MG TABLET PO SCH (06:00)
[2018-12-02 09:24] VITALS: BP 104/74; PULSE 57; TEMP 97.9
[2018-12-02] MEDS: NICOTINE 21 MG/24 HOURS TOPICAL PATCH TD SCH (10:12)
[2018-12-02] MEDS: PRENATAL VITAMINS W/ FOLIC ACID TABLET (FP) PO SCH (10:12)
[2018-12-02] MEDS: AMMONIUM LACTATE 12% LOTION 225 GM BOTTLE TP SCH (10:25)
--- NOTE | 2018-12-02 10:37 | DS ---
[facility] Detox Discharge Summary Admission Date: 11/29/18 Discharge Date: 12/02/18 - History Present History: Alcohol Dependence, MMTP - Physical Exam Results Vital Signs: Vital Signs Temperature 97.9 F 12/02/18 09:24 Pulse Rate 57 L 12/02/18 09:24 Respiratory Rate 16 12/02/18 09:24 Blood Pressure 104/74 12/02/18 09:24 O2 Sat by Pulse Oximetry (%) - Treatment Hospital Course: Detox Protocol Followed, Detoxed Safely, Responded well, Discharged Condition Good, Rehab Referral Accepted - Medication Discharge Medications: Ambulatory Orders Methadone [Dolophine -] 80 mg PO DAILY 06/16/18 Gabapentin 400 mg PO TID 11/29/18 Quetiapine Fumarate [Seroquel] 50 mg PO HS 11/29/18 - Diagnosis (1) Carpal tunnel syndrome Current Visit: Yes Status: Chronic (2) Insomnia Current Visit: Yes Status: Chronic (3) Abrasion Current Visit: No Status: Acute (4) Alcohol dependence with uncomplicated withdrawal Current Visit: Yes Status: Chronic (5) Anxiety and depression Current Visit: No Status: Acute (6) Hepatitis C Current Visit: No Status: Acute (7) History of peptic ulcer Current Visit: No Status: Acute (8) PTSD (post-traumatic stress disorder) Current Visit: No Status: Acute (9) Uncomplicated sedative, hypnotic or anxiolytic withdrawal Current Visit: Yes Status: Chronic (10) Weight loss Current Visit: No Status: Acute (11) Methadone maintenance therapy patient Current Visit: Yes Status: Chronic - AMA Did Patient Leave Against Medical Advice: No (referred to [facility] rehab)
== END 2018-12-02 11:15 | disposition home or self-care (01) | DRG 773 ==
LOC: YASAS 11:41 → Y6N 13:36
PROVIDERS: ADMIT Surgery; ATTEND Surgery
PROC: HZ2ZZZZ Detoxification Services for Substance Abuse Treatment (ICD-10-PCS; principal; 2018-11-29)
DX: F13.230 Sedative, hypnotic or anxiolytic dependence with withdrawal, uncomplicated (principal); F11.20 Opioid dependence, uncomplicated; F10.230 Alcohol dependence with withdrawal, uncomplicated; F43.10 Post-traumatic stress disorder, unspecified; F41.9 Anxiety disorder, unspecified; F32.9 Major depressive disorder, single episode, unspecified; G47.00 Insomnia, unspecified; B18.2 Chronic viral hepatitis C; R63.4 Abnormal weight loss; G56.03 Carpal tunnel syndrome, bilateral upper limbs; J45.909 Unspecified asthma, uncomplicated; Z87.11 Personal history of peptic ulcer disease
CPT/HCPCS: 36415; 80053; 81003; 85027; 86593

== ENCOUNTER 2022-11-10 14:16 | Inpatient (IN) | payer OTHER ==
[2022-11-10 14:39] VITALS: BMI 20.5
[2022-11-10] MEDS ORDERED: BENZONATATE 200 MG CAPSULE PO PRN (15:28)
[2022-11-10] MEDS ORDERED: IBUPROFEN 400 MG TABLET (FP) PO PRN (15:28)
[2022-11-10] MEDS ORDERED: LOPERAMIDE HCL 2 MG CAPSULE PO PRN (15:28)
[2022-11-10] MEDS ORDERED: MAGNESIUM HYDROX 2400MG/30ML ORAL SUSPENSION 30 ML CUP PO PRN (15:28)
[2022-11-10] MEDS ORDERED: POLYETHYLENE GLYCOL (HEALTHYLAX) 3350 17 GM PACKET PO PRN (15:28)
[2022-11-10] MEDS ORDERED: DICYCLOMINE HCL 10 MG CAPSULE PO PRN (15:28)
[2022-11-10] MEDS ORDERED: NICOTINE 10 MG CARTRIDGE (INHALER) IH PRN (15:28)
[2022-11-10] MEDS ORDERED: BENZOCAINE/MENTHOL (CHLORASEPTIC ) LOZENGE MM PRN (15:28)
[2022-11-10] MEDS ORDERED: LORazepam 1 MG TABLET PO PRN (15:28)
[2022-11-10] MEDS ORDERED: NALOXONE HCL (KLOXXADO) 8 MG SPRAY NS PRN (15:28)
[2022-11-10] MEDS ORDERED: LORazepam 2 MG TABLET PO ONE (15:28)
[2022-11-10] MEDS ORDERED: guaiFENesin 600 MG TABLET.ER (FP) PO PRN (15:28)
[2022-11-10] MEDS ORDERED: ACETAMINOPHEN 325 MG TABLET (FP) PO PRN (15:28)
[2022-11-10] MEDS ORDERED: ONDANSETRON *ODT* 4 MG TABLET SL PRN (15:28)
[2022-11-10] MEDS ORDERED: IBUPROFEN 600 MG TABLET (FP) PO PRN (15:28)
[2022-11-10] MEDS ORDERED: MAG HYDROX/AL HYDROX/SIMETH 30 ML UNIT-DOSE CUP PO PRN (15:28)
[2022-11-10] MEDS ORDERED: BISMUTH SUBSALICYLATE 524 MG/30 ML PO PRN (15:28)
[2022-11-10] MEDS ORDERED: NALOXONE HCL 0.4 MG/ML VIAL IM PRN (15:28)
[2022-11-10] MEDS ORDERED: LORazepam 2 MG TABLET ONE (15:41)
[2022-11-10] MEDS: NICOTINE 14 MG/24 HOURS TOPICAL PATCH TD SCH (17:27)
[2022-11-10] MEDS: LORazepam 2 MG TABLET PO SCH ×2 (17:27→22:21)
[2022-11-10] MEDS: PRENATAL VITAMINS W/ FOLIC ACID TABLET (FP) PO SCH (17:27)
[2022-11-10] MEDS: MELATONIN 5 MG TABLETS PO SCH (22:21)
[2022-11-10] MEDS: THIAMINE HCL 100 MG TABLET (FP) PO SCH (22:21)
[2022-11-11] MEDS: LORazepam 2 MG TABLET PO SCH ×4 (05:29→22:13)
[2022-11-11] MEDS: PRENATAL VITAMINS W/ FOLIC ACID TABLET (FP) PO SCH (10:09)
[2022-11-11] MEDS: NICOTINE 14 MG/24 HOURS TOPICAL PATCH TD SCH (10:10)
[2022-11-11] MEDS ORDERED: methaDONE HCL 40 MG DISPERSABLE TABLET PO ONE (10:15)
[2022-11-11 12:24] LABS: ALBUMIN 3.3 g/dl (3.4-5.0); BLOOD UREA NITROGEN 13.5 mg/dL (7-18); CALCIUM 9.3 mg/dL (8.5-10.1)
[2022-11-11 12:28] LABS: CREATININE 0.8 mg/dL (0.55-1.3)
[2022-11-11 12:29] LABS: BILIRUBIN,TOTAL 0.5 mg/dL (0.2-1); TOT PROT 6.8 g/dl (6.4-8.2)
[2022-11-11 12:45] LABS: HEMATOCRIT 38.6 % (32.4-45.2); HEMOGLOBIN 12.7 GM/dL (10.7-15.3); MCH 28.1 pg (25.7-33.7); MCHC 32.9 g/dl (32.0-36.0); MEAN CELL VOLUME 85.4 fl (80-96); MEAN PLT VOLUME 8.3 fl (7.5-11.1); PLATELET COUNT 312 10^3/uL (134-434); RBC 4.52 M/mm3 (3.60-5.2); RDW 14.8 % (11.6-15.6); WHITE BLOOD COUNT 5.7 K/mm3 (4.0-10.0)
[2022-11-11] MEDS: QUEtiapine FUMARATE 50 MG TABLET PO SCH (22:13)
[2022-11-11] MEDS: MELATONIN 5 MG TABLETS PO SCH (22:13)
[2022-11-11] MEDS: THIAMINE HCL 100 MG TABLET (FP) PO SCH (22:13)
[2022-11-11] MEDS: METHOCARBAMOL 500 MG TABLET PO PRN (22:14)
[2022-11-12] MEDS: LORazepam 1 MG TABLET PO SCH ×4 (05:16→22:40)
[2022-11-12] MEDS ORDERED: methaDONE 40 MG, methaDONE 10 MG PO ONE (06:00)
[2022-11-12] MEDS: PRENATAL VITAMINS W/ FOLIC ACID TABLET (FP) PO SCH (10:31)
[2022-11-12] MEDS: NICOTINE 14 MG/24 HOURS TOPICAL PATCH TD SCH (10:31)
[2022-11-12] MEDS: hydrOXYzine PAMOATE 25 MG CAPSULE (FP) PO PRN ×2 (10:33→18:01)
[2022-11-12] MEDS: MELATONIN 5 MG TABLETS PO SCH (22:39)
[2022-11-12] MEDS: THIAMINE HCL 100 MG TABLET (FP) PO SCH (22:40)
[2022-11-12] MEDS: QUEtiapine FUMARATE 50 MG TABLET PO SCH (22:40)
[2022-11-13] MEDS ORDERED: LORazepam 0.5 MG TABLET PO PRN
[2022-11-13] MEDS: LORazepam 0.5 MG TABLET PO SCH ×4 (05:55→22:04)
[2022-11-13] MEDS ORDERED: methaDONE 40 MG, methaDONE 20 MG PO ONE (06:00)
[2022-11-13] MEDS: PRENATAL VITAMINS W/ FOLIC ACID TABLET (FP) PO SCH (10:26)
[2022-11-13] MEDS: NICOTINE 14 MG/24 HOURS TOPICAL PATCH TD SCH (10:28)
[2022-11-13] MEDS: THIAMINE HCL 100 MG TABLET (FP) PO SCH (22:03)
[2022-11-13] MEDS: MELATONIN 5 MG TABLETS PO SCH (22:03)
[2022-11-13] MEDS: QUEtiapine FUMARATE 50 MG TABLET PO SCH (22:03)
[2022-11-14] MEDS ORDERED: LORazepam 0.5 MG TABLET PO ONE (05:00)
[2022-11-14] MEDS ORDERED: methaDONE 40 MG, methaDONE 30 MG PO ONE (06:00)
[2022-11-14] MEDS: NICOTINE 14 MG/24 HOURS TOPICAL PATCH TD SCH (10:24)
[2022-11-14] MEDS: PRENATAL VITAMINS W/ FOLIC ACID TABLET (FP) PO SCH (10:24)
[2022-11-14] MEDS: hydrOXYzine PAMOATE 25 MG CAPSULE (FP) PO PRN (17:57)
[2022-11-14] MEDS: METHOCARBAMOL 500 MG TABLET PO PRN (17:57)
[2022-11-14] MEDS: QUEtiapine FUMARATE 50 MG TABLET PO SCH (22:18)
[2022-11-14] MEDS: THIAMINE HCL 100 MG TABLET (FP) PO SCH (22:18)
[2022-11-14] MEDS: MELATONIN 5 MG TABLETS PO SCH (22:18)
[2022-11-15] MEDS ORDERED: methaDONE HCL 40 MG DISPERSABLE TABLET PO ONE (06:00)
[2022-11-15] MEDS: PRENATAL VITAMINS W/ FOLIC ACID TABLET (FP) PO SCH (10:18)
[2022-11-15] MEDS: hydrOXYzine PAMOATE 25 MG CAPSULE (FP) PO PRN (10:18)
[2022-11-15] MEDS: NICOTINE 14 MG/24 HOURS TOPICAL PATCH TD SCH (10:19)
[2022-11-15] MEDS: MELATONIN 5 MG TABLETS PO SCH (22:20)
[2022-11-15] MEDS: QUEtiapine FUMARATE 50 MG TABLET PO SCH (22:20)
[2022-11-15] MEDS: THIAMINE HCL 100 MG TABLET (FP) PO SCH (22:20)
[2022-11-15] MEDS: METHOCARBAMOL 500 MG TABLET PO PRN (22:21)
[2022-11-16] MEDS ORDERED: methaDONE 80 MG, methaDONE 10 MG PO ONE (06:00)
[2022-11-16 09:25] VITALS: BP 123/77; PULSE 68; RESP 18; TEMP 97.5
[2022-11-16] MEDS: PRENATAL VITAMINS W/ FOLIC ACID TABLET (FP) PO SCH (10:32)
[2022-11-16] MEDS: NICOTINE 14 MG/24 HOURS TOPICAL PATCH TD SCH (10:32)
[2022-11-17] MEDS ORDERED: methaDONE 80 MG, methaDONE 20 MG PO SCH (06:00)
== END 2022-11-16 11:33 | disposition home or self-care (01) | DRG 773 ==
LOC: YASAS 14:16 → Y3N 15:41
PROVIDERS: ADMIT Allergy & Immunology; ATTEND Surgery
PROC: HZ2ZZZZ Detoxification Services for Substance Abuse Treatment (ICD-10-PCS; principal; 2022-11-10)
DX: F10.230 Alcohol dependence with withdrawal, uncomplicated (principal); F13.230 Sedative, hypnotic or anxiolytic dependence with withdrawal, uncomplicated; F11.20 Opioid dependence, uncomplicated; F14.20 Cocaine dependence, uncomplicated; F17.210 Nicotine dependence, cigarettes, uncomplicated; F41.8 Other specified anxiety disorders; G56.03 Carpal tunnel syndrome, bilateral upper limbs; G47.00 Insomnia, unspecified; R76.8 Other specified abnormal immunological findings in serum; Z86.19 Personal history of other infectious and parasitic diseases; Z87.11 Personal history of peptic ulcer disease; Z88.8 Allergy status to other drugs, medicaments and biological substances; Z56.0 Unemployment, unspecified; Z59.00 Homelessness unspecified
CPT/HCPCS: 36415; 80053; 81025; 85027; 86593; 86780; 87811; 93005; 93010; C9803-CS; Q0162; U0003; U0005